=== PATIENT | male | born 2000 | race Caucasian/White ===

== ENCOUNTER 2021-02-13 11:30 | Emergency (ER) | payer BC, OTHER ==
--- OUTSIDE RECORDS SUMMARY | 2021-02-13 11:36 | XMS REPORT | Continuity of Care Document ---
:2000 Author Organization [facility] t Address [address] [place] [address] Care Team Providers Name Role Phone Karthik Torres MD Attending Clinician Johny Serrano Attending Clinician Megan Serrano Attending Clinician Problems Condition Condition Condition Status Onset Resolution Last Treating Co mments Source Name Details Category Date Date Treatment Clinician Date RIGHT ACL Diagnosis Active 2015-082017-09-20 Memoria 2-16 14:25:00 l RIGHT 08:00: Dickinson ACL 00 Active 07/29/2016 [facility] RIGHT KNEE Diagnosis Active 2015-082016-11-21 Memoria 2-16 14:37:00 l RIGHT 08:00: Levy KNEE 00 Active 07/29/2016 [facility] [place] RT Diagnosis Active 2015-082016-12-15 Mem oria SHOULDER 2-16 09:42:00 l RT 08:00: Dickinson SHOULDER 00 Active 07/29/2016 [facility] [place] SPRAIN Diagnosis Active 2015-082017-05-03 Mem oria 2-16 13:03:00 l SPRAIN 08:00: Levy 00 Active 07/29/2016 [facility] [place]ley S80.01XA - Diagnosis Active 2015-10-28 Memoria "CONTUSION 3-10 07:46:00 l OF RIGHT S80.01XA 00:01: Herm jared KNEE, INI - 00 "CONTUSION OF RIGHT KNEE, INI Active 10/22/2015 OP[facility] Levy 719.46 - Diagnosis Active 2015-04-28 M emoria JOINT 04-28 18:34:00 l PAIN-L/LE 719.46 - 00:01: Her patton JOINT 00 PAIN-L/LE Active 04/28/2015 OP[facility] [place] RT KNEE Diagnosis Active 2018-01-29 Me moria 12:15:00 l RT KNEE Levy Active [facility] [place] Allergies, Adverse Reactions, Alerts This patient has no known allergies or adverse reactions. Social History Social Habit Start Date Stop Date Quantity Comments Source Social History 2017-05-19 2017-05-19 [facility] tamiko 04:59:00 04:59:00 Medications This patient has no known medications. Procedures This patient has no known procedures. Encounters Start End Encounter Admission Attending Care Care Encounter Source Date/Time Date/Time Type Type Clinicians Facility Department ID 2021-02-04 2021-02-04 Office Brian CTALEXA [id number] 08:27:29 08:42:29 Visit [facility] [id number] Karthik Mckeon [id number] Professio [id number] nal 044 Office [address] 2017-04-19 2017-05-18 Outpatient Lowe, 2.16.840. 2.16.840.1. 8 [id number] 08:00:00 23:59:00 Josue [id number] 08 Johny [id number] 5.54 2017-03-20 2017-04-18 Outpatient Lowe, 2.16.840. 2.16.840.1. 8 [id number] 11:00:00 23:59:00 Josue [id number] 07 Johny [id number] 5.54 2017-02-15 2017-03-16 Outpatient Lowe, 2.16.840. 2.16.840.1. 8 [id number] 15:00:00 23:59:00 Josue [id number] 06 Johny 3.615.54 5.54 2017-01-11 2017-02-09 Outpatient Lowe, 2.16.840. 2.16.840.1. 8 [id number] 17:00:00 23:59:00 Josue [id number]. [id number] 05 Jhony 3.615.54 5.54 2017-01-25 2017-01-25 Outpatient Lowe, MH29 MH29 [id number] 17:03:00 23:59:00 Josue Herrera Johny 2016-12-07 2017-01-05 Outpatient Lowe, 2.16.840. 2.16.840.1. 8 [id number] 15:00:00 23:59:00 Josue [id number] 04 Johny 3.615.54 5.54 2016-11-07 2016-12-06 Outpatient Lowe, 2.16.840. 2.16.840.1. 8 [id number] 17:00:00 23:59:00 Josue [id number] 03 Johny 3.615.54 5.54 2016-10-05 2016-11-03 Outpatient Lowe, 2.16.840. 2.16.840.1. 8 [id number] 17:00:00 23:59:00 Josue [id number] 02 Johny 3.615.54 5.54 2016-09-01 2016-09-30 Outpatient Lowe, 2.16.840. 2.16.840.1. 8 [id number] 17:00:00 23:59:00 Josue [id number] 01 Johny 3.615.54 5.54 2016-08-01 2016-08-30 Outpatient Lowe, 2.16.840. 2.16.840.1. 8 [id number] 15:59:00 23:59:00 Josue [id number] 00 Johny 3.615.54 5.54 2015-12-12 2015-12-12 Outpatient Lowe, MHOIP MHOIP [id number] 13:28:00 23:59:00 Josue Guzman 03 2015-10-27 2015-10-27 Outpatient Lowe, MHOIH MHOIH [id number] 15:59:00 23:59:00 Josue Guzman 02 2015-04-28 2015-04-28 Outpatient Lowe, MHOIH MHOIH [id number] 18:24:00 23:59:00 Josue Guzman 2015-04-24 2015-04-24 Outpatient Zach [facility] [id number] 14:50:00 23:59:00 Josue Guzman Results This patient has no known results.
[2021-02-13 12:59] LABS: Absolute Lymphocytes (CBC) 1.2 K/uL (0.7-4.9); Basophils % 0.3 % (0-1.3); Hematocrit 51.8 % (39.6-49.0); Lymphocytes % 12.7 % (15.3-44.8); MPV 7.5 fL (7.6-11.3); RBC Red Blood Cell Count 5.63 M/uL (4.33-5.43)
[2021-02-13 13:00] LABS: Protime INR 1.01
[2021-02-13 13:12] LABS: ALT/SGPT 37 U/L (12-78); AST/SGOT 21 U/L (15-37); Albumin 4.2 g/dL (3.4-5.0); Alkaline Phosphatase 97 U/L (45-117); BUN Blood Urea Nitrogen 14 mg/dL (7-18); Bicarbonate 26 mmol/L (21-32); Bilirubin Direct 0.1 mg/dL (0-0.2); Bilirubin Total 0.4 mg/dL (0.2-1.0); Glucose Level 134 mg/dL (74-106); Magnesium 2.1 mg/dL (1.8-2.4); NT PRO-BNP 16 pg/mL (<125); Potassium 4.4 mmol/L (3.5-5.1); Protein, Total 7.8 g/dL (6.4-8.2); Sodium Level 139 mmol/L (136-145); Troponin (Emerg Dept Use Only) < 0.02 ng/mL (0.0-0.045)
--- NOTE | 2021-02-13 13:34 | RAD REPORT ---
EXAM DESCRIPTION: RAD - Chest Single View - 02/13/2021 1:20 pm CLINICAL HISTORY: CHEST PAIN Chest pain. COMPARISON: <Comparisons> FINDINGS: Portable technique limits examination quality. The lungs are grossly clear. The heart is normal in size. No displaced fractures. IMPRESSION: No acute intrathoracic process suspected.
--- NOTE | 2021-02-13 14:46 | ER ---
Nurse's Notes [facility] Name: Zacarias Rizo Age: 20 yrs Sex: Male : 2000 Arrival Date: 02/13/2021 Time: 11:33 Bed 20 Private MD: Diagnosis: Chest pain, unspecified Presentation: 02/13 11:38 Chief complaint: Patient states: Pt was at work outside and started having chest pain, kg tingling to right side, and nausea around 10:30. Coronavirus screen: Client denies travel out of the [place] in the last 14 days. At this time, unable to obtain information related to travel outside the [place] At this time, the client does not indicate any symptoms associated with coronavirus-19. Ebola Screen: Patient negative for fever greater than or equal to 101.5 degrees Fahrenheit, and additional compatible Ebola Virus Disease symptoms Patient denies exposure to infectious person. Patient denies travel to an Ebola-affected area in the 21 days before illness onset. Initial Sepsis Screen: Does the patient meet any 2 criteria? No. Patient's initial sepsis screen is negative. Does the patient have a suspected source of infection? No. Patient's initial sepsis screen is negative. Risk Assessment: Do you want to hurt yourself or someone else? Patient reports no desire to harm self or others. Onset of symptoms was February 13, 2021 at 10:20. 11:38 Method Of Arrival: Ambulatory kg 11:38 Acuity: LIZ 3 kg Triage Assessment: 11:40 General: Appears in no apparent distress. Behavior is calm, cooperative, appropriate kg for age, quiet. Pain: Complains of pain in anterior aspect of left upper chest and left breast Pain radiates to anterior aspect of right shoulder, right axilla and right bicep Pain currently is 5 out of 10 on a pain scale. at worst was 9 out of 10 on a pain scale. level that patient reports is acceptable is 3 out of 10 on a pain scale. Quality of pain is described as sharp, stabbing, constant. Historical: - Allergies: 11:42 steriods; kg - PSHx: 11:42 right hand sx; Right ACL; kg - Immunization history:: Adult Immunizations up to date, Client reports having NOT received the Covid vaccine. - Social history:: Smoking status: Patient reports the use of cigarette tobacco products, smokes one-half pack cigarettes per day, Patient uses alcohol, weekly. Patient/guardian denies using Smoking status: Reported history of juuling and/or vaping. Screenin:40 Abuse screen: Denies threats or abuse. Denies injuries from another. Nutritional kg screening: No deficits noted. Tuberculosis screening: No symptoms or risk factors identified. Fall Risk None identified. No fall in past 12 months (0 pts). No secondary diagnosis (0 pts). No IV (0 pts). Ambulatory Aid- None/Bed Rest/Nurse Assist (0 pts). Gait- Normal/Bed Rest/Wheelchair (0 pts) Mental Status- Oriented to own ability (0 pts). Total Wang Fall Scale indicates No Risk (0-24 pts). Assessment: 12:30 General: Appears in no apparent distress. uncomfortable, Behavior is calm, cooperative, zb appropriate for age. Pain: Complains of pain in chest and right arm Pain currently is 5 out of 10 on a pain scale. Quality of pain is described as dull, pressure, Pain began 2 hours ago. Is continuous. Neuro: Level of Consciousness is awake, alert, obeys commands. Cardiovascular: Heart tones S1 S2 present Patient's skin is warm and dry. Chest pain quality is pressure, sharp, is located in right left anterior. Respiratory: Airway is patent Trachea midline. GI: Abdomen is round Bowel sounds present X 4 quads. Abd is soft and non tender X 4 quads. Reports nausea. Derm: Skin is intact, is healthy with good turgor, Skin is normal. 13:30 Reassessment: Patient appears in no apparent distress at this time. Patient and/or zb family updated on plan of care and expected duration. Pain level reassessed. Patient is alert, oriented x 3, equal unlabored respirations, skin warm/dry/pink. family at bedside. 14:25 Reassessment: Patient appears in no apparent distress at this time. Patient and/or zb family updated on plan of care and expected duration. Pain level reassessed. Patient is alert, oriented x 3, equal unlabored respirations, skin warm/dry/pink. family remains at bedside. Vital Signs: 11:38 BP 122 / 72; Pulse 75; Resp 20; Temp 98.0(O); Pulse Ox 98% on R/A; Weight 111.2 kg (R); kg Height 6 ft. 2 in. (187.96 cm); Pain 5/10; 14:24 BP 129 / 77; Pulse 78; Resp 18; Pulse Ox 99% on R/A; zb 11:38 Body Mass Index 31.48 (111.20 kg, 187.96 cm) kg ED Course: 11:33 Patient arrived in ED. mr 11:40 Triage completed. kg 11:42 Arm band placed on left wrist. kg 11:45 Patient has correct armband on for positive identification. Call light in reach. Side kg rails up X 1. piper installer on. Pulse ox on. NIBP on. 12:12 Delmy Flood RN is Primary Nurse. zb 12:13 Rene Braxton PA is PHCP. [facility] 12:13 Dl Hui MD is Attending Physician. m 12:36 Initial lab(s) drawn, by ga, sent to lab. Inserted saline lock: 20 gauge in right zb antecubital area, using aseptic technique. Blood collected. Patient maintains SpO2 saturation greater than 95% on room air. 12:47 Warm blanket given. Pillow given. 5 13:19 XRAY Chest (1 view) In Process Unspecified. EDMS 15:15 No provider procedures requiring assistance completed. IV discontinued, intact, zb bleeding controlled, No redness/swelling at site. Pressure dressing applied. Administered Medications: No medications were administered Outcome: 14:45 Discharge ordered by . jm 15:15 Discharged to home ambulatory, with family. zb 15:15 Condition: stable 15:15 Discharge instructions given to patient, family, Instructed on discharge instructions, follow up and referral plans. Demonstrated understanding of instructions, follow-up care. 15:23 Patient left the ED. zb Signatures: Dispatcher [employer] EDMS Rene Braxton PA PA cristina Myla Skaggs Maria 5 Delmy Flood RN RN zb Graham, Kristen, RN RN kg Corrections: (The following items were deleted from the chart) 11:44 11:42 Allergies: No Known Allergies; kg kg
--- NOTE | 2021-02-13 14:46 | EDPHYS ---
Physician Documentation [facility] Name: Zacarias Rizo Age: 20 yrs Sex: Male : 2000 Arrival Date: 02/13/2021 Time: 11:33 Bed 20 Private MD: ED Physician Dl Hui HPI: 02/13 12:51 This 20 yrs old Male presents to ER via Ambulatory with complaints of Chest jmm Pain, High Blood Pressure. 12:51 The patient or guardian reports chest pain that is located primarily in the substernal jmm area. The pain radiates to the right arm. Associated signs and symptoms: Pertinent positives: shortness of breath. The chest pain is described as aching, sharp. Duration: The patient or guardian reports multiple episodes. Modifying factors: The symptoms are alleviated by nothing. the symptoms are aggravated by nothing. The patient has not experienced similar symptoms in the past. Patient recently diagnosed with elevated blood presurre. Denies cardiac history. . Historical: - Allergies: 11:42 steriods; kg - PSHx: 11:42 right hand sx; Right ACL; kg - Immunization history:: Adult Immunizations up to date, Client reports having NOT received the Covid vaccine. - Social history:: Smoking status: Patient reports the use of cigarette tobacco products, smokes one-half pack cigarettes per day, Patient uses alcohol, weekly. Patient/guardian denies using Smoking status: Reported history of juuling and/or vaping. ROS: 12:51 Constitutional: Negative for fever, chills, and weight loss, Respiratory: Negative for jmm shortness of breath, cough, wheezing, and pleuritic chest pain. 12:51 Cardiovascular: Positive for chest pain. 12:51 All other systems are negative. Exam: 12:51 Constitutional: This is a well developed, well nourished patient who is awake, alert, jmm and in no acute distress. Head/Face: atraumatic. Eyes: EOMI, no conjunctival erythema appreciated ENT: Moist Mucus Membranes Neck: Trachea midline, Supple Chest/axilla: Normal chest wall appearance and motion. Cardiovascular: Regular rate and rhythm. No edema appreciated Respiratory: Normal respirations, no respiratory distress appreciated Abdomen/GI: Non distended, soft Back: Normal ROM Skin: General appearance color normal MS/ Extremity: Moves all extremities, no obvious deformities appreciated, no edema noted to the lower extremities Neuro: Awake and alert, normal gait Psych: Behavior is normal, Mood is normal, Patient is cooperative and pleasant Vital Signs: 11:38 BP 122 / 72; Pulse 75; Resp 20; Temp 98.0(O); Pulse Ox 98% on R/A; Weight 111.2 kg (R); kg Height 6 ft. 2 in. (187.96 cm); Pain 5/10; 14:24 BP 129 / 77; Pulse 78; Resp 18; Pulse Ox 99% on R/A; zb 11:38 Body Mass Index 31.48 (111.20 kg, 187.96 cm) kg MDM: 13:08 Patient medically screened. cristina 14:44 Data reviewed: vital signs, nurses notes. Counseling: I had a detailed discussion with riya the patient and/or guardian regarding: the historical points, exam findings, and any diagnostic results supporting the discharge/admit diagnosis, lab results, radiology results, the need for outpatient follow up, to return to the emergency department if symptoms worsen or persist or if there are any questions or concerns that arise at home. ED course: HEART SCORE = 1. D-Dimer is negative. Patient advised to follow up with pcp/cardiology for further evaluation. Patient understood and agrees with the plan of care. . 02/13 12:51 Order name: Basic Metabolic Panel; Complete Time: 13:38 zb 02/13 12:51 Order name: CBC with Diff; Complete Time: 13:08 zb 02/13 12:51 Order name: LFT's; Complete Time: 13:38 zb 02/13 12:51 Order name: Magnesium; Complete Time: 13:38 zb 02/13 12:51 Order name: NT PRO-BNP; Complete Time: 13:38 zb 02/13 12:51 Order name: PT-INR; Complete Time: 14:28 zb 02/13 12:51 Order name: Troponin (emerg Dept Use Only); Complete Time: 13:38 zb 02/13 12:51 Order name: XRAY Chest (1 view); Complete Time: 13:38 zb 02/13 12:51 Order name: EKG; Complete Time: 12:51 zb 02/13 12:51 Order name: Cardiac monitoring; Complete Time: 12:57 zb 02/13 12:51 Order name: EKG - Nurse/Tech; Complete Time: 12:54 zb 02/13 12:51 Order name: IV Saline Lock; Complete Time: 12:57 zb 02/13 14:09 Order name: D-Dimer; Complete Time: 14:28 EDMS 02/13 12:51 Order name: Labs collected and sent; Complete Time: 12:57 zb 02/13 12:51 Order name: O2 Per Protocol; Complete Time: 12:57 zb 02/13 12:51 Order name: O2 Sat Monitoring; Complete Time: 12:57 zb Administered Medications: No medications were administered Disposition Summary: 02/13/21 14:45 Discharge Ordered Location: Home jm Condition: Stable jmm Diagnosis - Chest pain, unspecified jmm Followup: jmm - With: Private Physician - When: 2 - 3 days - Reason: Recheck today's complaints, Continuance of care, Re-evaluation by your physician Discharge Instructions: - Discharge Summary Sheet jmm - Nonspecific Chest Pain, Adult jmm Forms: - Medication Reconciliation Form [facility] - Thank You Letter jmm - Antibiotic Education jmm - Prescription Opioid Use jm - Work release form zb Addendum: 02/15/2021 13:33 Co-signature as Attending Physician, Dl Hui MD I agree with the assessment and k dr plan of care. Signatures: Dispatcher [employer] EDWA Dl Hui MD MD kdr Mickail, Joel, PA PA jmm Brown, Zipporah, RN RN zCamila Diaz RN RN kg Corrections: (The following items were deleted from the chart) 02/13 11:44 11:42 Allergies: No Known Allergies; kg kg 14:09 13:10 D-DIMER+COAG.LAB.BRZ ordered. [facility] EDWA
[2021-02-13 15:33] VITALS: TEMP 98
[2021-02-13 15:35] VITALS: BP 129/77; O2SAT 99
--- NOTE | 2021-02-14 13:47 | EKG ---
Test Date: 2021-02-13 Test Time: 11:51:00 Scuba Instructor: ANCA MEASUREMENT RESULTS: Intervals: Rate: 75 WY: 158 QRSD: 90 QT: 358 QTc: 399 [place]: P: 62 WY: 158 QRS: 57 T: 57 INTERPRETIVE STATEMENTS: Normal sinus rhythm Early repolarization Normal ECG No previous ECG available for comparison Electronically Signed On 02-14-21 13:45:43 CDT by Justice Molina
== END 2021-02-13 15:23 | disposition home or self-care (01) ==
LOC: ER 11:30
DX: R07.9 Chest pain, unspecified (principal); F17.210 Nicotine dependence, cigarettes, uncomplicated; Z88.8 Allergy status to other drugs, medicaments and biological substances
CPT/HCPCS: 36415; 71045; 80048; 80076; 83735; 83880; 84484; 85025; 85379; 85610; 93005; 99285

== ENCOUNTER 2021-05-26 04:19 | Emergency (ER) | payer BC, OTHER ==
[2021-05-26 05:00] LABS: Urine Blood Trace-intact (Negative); Urine Glucose Negative (Negative); Urine Protein Negative (Negative); Urine Specific Gravity <=1.005 (1.005-1.030); Urine pH 5.5 (5.0-7.0)
[2021-05-26 05:01] LABS: Absolute Lymphocytes (CBC) 2.1 K/uL (0.7-4.9); Basophils % 0.4 % (0-1.3); Hematocrit 47.9 % (39.6-49.0); MPV 6.9 fL (7.6-11.3); Protime INR 0.99; RBC Red Blood Cell Count 5.26 M/uL (4.33-5.43)
[2021-05-26 05:15] LABS: Barbiturates NEGATIVE (NEGATIVE); Benzodiazepines NEGATIVE (NEGATIVE); Cocaine NEGATIVE (NEGATIVE); METHAMPHETAM NEGATIVE (NEGATIVE); Methadone NEGATIVE (NEGATIVE); Opiates NEGATIVE (NEGATIVE); Phencyclidine NEGATIVE (NEGATIVE); THC Cannibis NEGATIVE (NEGATIVE)
[2021-05-26] MEDS ORDERED: NA CHLORIDE 0.9% 1,000 ML ONE (05:16)
[2021-05-26] MEDS ORDERED: FAMOTIDINE 20 MG/2 ML VIAL IV ONE (05:17)
[2021-05-26 05:18] LABS: ALT/SGPT 36 U/L (12-78); AST/SGOT 19 U/L (15-37); Alkaline Phosphatase 97 U/L (45-117); BUN Blood Urea Nitrogen 13 mg/dL (7-18); Bicarbonate 23 mmol/L (21-32); Bilirubin Direct < 0.1 mg/dL (0-0.2); Bilirubin Total 0.3 mg/dL (0.2-1.0); Glucose Level 117 mg/dL (74-106); Magnesium 1.9 mg/dL (1.8-2.4); NT PRO-BNP 6 pg/mL (<125); Protein, Total 7.9 g/dL (6.4-8.2); Sodium Level 136 mmol/L (136-145); Troponin (Emerg Dept Use Only) < 0.02 ng/mL (0.0-0.045)
[2021-05-26] MEDS ORDERED: KETOROLAC 30 MG/ML INJ ONE (05:30)
--- NOTE | 2021-05-26 06:23 | EDPHYS ---
Physician Documentation [facility] Name: Zacarias Rizo Age: 20 yrs Sex: Male : 2000 Arrival Date: 05/26/2021 Time: 04:29 Bed 6 Private MD: REI Physician Jordi Yanez HPI: 05/26 04:43 This 20 yrs old Male presents to ER via EMS with complaints of chest pain. tete 04:43 The patient has shortness of breath with light activity. Onset: The symptoms/episode tete began/occurred just prior to arrival, today. Duration: The symptoms are continuous, and are unchanged since they started. The patient's shortness of breath is aggravated by nothing, is alleviated by nothing. The patient or guardian reports chest pain that is located primarily in the anterior chest wall. The pain does not radiate. Associated signs and symptoms: Pertinent positives: chest pain. Severity of symptoms: At their worst the symptoms were moderate. Associated signs and symptoms: The patient has no apparent associated signs or symptoms. The chest pain is described as sharp. Duration: The patient or guardian reports multiple episodes, that wax and wane. Historical: - Allergies: 04:38 steriods; sj1 - Home Meds: 04:38 Buspirone Oral 1 tab 2 times per day [Active]; sj1 - PMHx: 04:38 Anxiety; sj1 - PSHx: 04:38 Right ACL; right hand sx; sj1 - Immunization history:: Adult Immunizations up to date, Client reports having NOT received the Covid vaccine. - Social history:: Smoking status: Patient reports the use of cigarette tobacco products, smokes one-half pack cigarettes per day, Patient uses alcohol, on a daily basis. admits to "couple of beers" a day. - Family history:: not pertinent. ROS: 04:43 Constitutional: Negative for fever, chills, and weight loss, Eyes: Negative for injury, tete pain, redness, and discharge, ENT: Negative for injury, pain, and discharge, Neck: Negative for injury, pain, and swelling, Respiratory: Negative for shortness of breath, cough, wheezing, and pleuritic chest pain, Abdomen/GI: Negative for abdominal pain, nausea, vomiting, diarrhea, and constipation, Back: Negative for injury and pain, : Negative for injury, bleeding, discharge, and swelling, MS/Extremity: Negative for injury and deformity, Skin: Negative for injury, rash, and discoloration, Neuro: Negative for headache, weakness, numbness, tingling, and seizure, Psych: Negative for depression, anxiety, suicide ideation, homicidal ideation, and hallucinations, Allergy/Immunology: Negative for hives, rash, and allergies, Endocrine: Negative for neck swelling, polydipsia, polyuria, polyphagia, and marked weight changes. 04:43 Cardiovascular: Positive for chest pain. Exam: 04:43 Constitutional: This is a well developed, well nourished patient who is awake, alert, tete and in no acute distress. Head/Face: Normocephalic, atraumatic. Eyes: Pupils equal round and reactive to light, extra-ocular motions intact. Lids and lashes normal. Conjunctiva and sclera are non-icteric and not injected. Cornea within normal limits. Periorbital areas with no swelling, redness, or edema. ENT: Nares patent. No nasal discharge, no septal abnormalities noted. Tympanic membranes are normal and external auditory canals are clear. Oropharynx with no redness, swelling, or masses, exudates, or evidence of obstruction, uvula midline. Mucous membranes moist. Neck: Trachea midline, no thyromegaly or masses palpated, and no cervical lymphadenopathy. Supple, full range of motion without nuchal rigidity, or vertebral point tenderness. No Meningismus. Chest/axilla: Normal chest wall appearance and motion. Nontender with no deformity. No lesions are appreciated. Respiratory: Lungs have equal breath sounds bilaterally, clear to auscultation and percussion. No rales, rhonchi or wheezes noted. No increased work of breathing, no retractions or nasal flaring. Abdomen/GI: Soft, non-tender, with normal bowel sounds. No distension or tympany. No guarding or rebound. No evidence of tenderness throughout. Back: No spinal tenderness. No costovertebral tenderness. Full range of motion. Male : Normal genitalia with no discharge or lesions. Skin: Warm, dry with normal turgor. Normal color with no rashes, no lesions, and no evidence of cellulitis. MS/ Extremity: Pulses equal, no cyanosis. Neurovascular intact. Full, normal range of motion. Neuro: Awake and alert, GCS 15, oriented to person, place, time, and situation. Cranial nerves II-XII grossly intact. Motor strength 5/5 in all extremities. Sensory grossly intact. Cerebellar exam normal. Normal gait. Psych: Awake, alert, with orientation to person, place and time. Behavior, mood, and affect are within normal limits. 04:43 Cardiovascular: Rate: normal, Rhythm: regular, Pulses: Pulses are 4+ in bilateral radial, brachial, femoral, popliteal, posterior tibial and and dorsalis pedis arteries.. 04:43 ECG was reviewed by the Attending Physician. Vital Signs: 04:36 BP 103 / 61 LA Sitting (auto/reg); Pulse 94; Resp 15; Temp 98.1(O); Pulse Ox 97% on sj1 R/A; Weight 117.93 kg (R); Height 6 ft. 2 in. (187.96 cm); Pain 3/10; 07:05 BP 126 / 59; Pulse 94; Resp 16 S; Temp 97.9(O); Pulse Ox 98% on R/A; Pain 0/10; sj1 04:36 Body Mass Index 33.38 (117.93 kg, 187.96 cm) [facility] MDM: 04:29 Patient medically screened. tete 06:16 Differential diagnosis: Anxiety Reaction asthma, Bronchitis abnormal EKG, acute tete myocardial infarction, anxiety, congestive heart failure Cholelithiasis costochondritis, hiatal hernia, pancreatitis, pericarditis, pleurisy, pneumonia, Myocardial Infarction pneumonia, pulmonary edema, Pulmonary Embolism Unstable Angina. Antibiotic administration: Not indicated. HEART Score: History: Slightly Suspicious (0), ECG: Normal (0), Age: < or = 45 years (0), Risk Factors: Troponin: < or = 1 x Normal Limit (0). HEART Score: Total Score = 0. The patient's Wells Deep Vein Thrombosis Score was calculated as follows: Total Score: 0. This patient was found to be at low risk for a deep vein thrombosis by using the Well's assessment criteria Total Score: 0-2 Pts- Low Risk. The patient's pulmonary embolism risk score was calculated as follows: Total Score: 0-2 points. This patient was found to be at low risk for a pulmonary embolism by using the Well's assessment criteria Total Score: 0-2 points. This patient was found to be at low risk for a pulmonary embolism by using the Well's assessment criteria. ZOEY Risk Score: TOTAL SCORE = 0. Immunization status:. Data reviewed: vital signs, nurses notes, lab test result(s), EKG, radiologic studies, plain films. Data interpreted: roller checker: rate is 94 beats/min, rhythm is regular, Pulse oximetry: on room air is 97 %. Test interpretation: by ED physician or midlevel provider: ECG, plain radiologic studies. Counseling: I had a detailed discussion with the patient and/or guardian regarding: the historical points, exam findings, and any diagnostic results supporting the discharge/admit diagnosis, lab results, radiology results, the need for outpatient follow up, for definitive care, 05/26 04:31 Order name: Basic Metabolic Panel [facility] 05/26 04:31 Order name: CBC with Diff [facility] 05/26 04:31 Order name: LFT's; Complete Time: 06:16 [facility] 05/26 04:31 Order name: Magnesium; Complete Time: 06:16 [facility] 05/26 04:31 Order name: NT PRO-BNP; Complete Time: 06:16 [facility] 05/26 04:31 Order name: PT-INR; Complete Time: 06:16 [facility] 05/26 04:31 Order name: Troponin (emerg Dept Use Only); Complete Time: 06:16 [facility] 05/26 04:31 Order name: UDS [facility] 05/26 04:31 Order name: Basic Metabolic Panel; Complete Time: 06:16 [facility] 05/26 04:31 Order name: CBC with Automated Diff; Complete Time: 06:16 [facility] 05/26 04:32 Order name: Urine Drug Screen; Complete Time: 06:16 [facility] 05/26 04:41 Order name: ETOH Level; Complete Time: 06:16 [facility] 05/26 05:00 Order name: Urine Dipstick-Ancillary; Complete Time: 06:16 [facility] 05/26 06:16 Order name: CREATININE WHOLE BLOOD [facility] 05/26 04:31 Order name: XRAY Chest (1 view) [facility] 05/26 04:31 Order name: EKG; Complete Time: 04:31 [facility] 05/26 04:31 Order name: Cardiac monitoring; Complete Time: 04:44 [facility] 05/26 04:31 Order name: EKG - Nurse/Tech; Complete Time: 04:44 [facility] 05/26 04:31 Order name: IV Saline Lock; Complete Time: 04:44 [facility] 05/26 04:31 Order name: Labs collected and sent; Complete Time: 04:44 [facility] 05/26 04:31 Order name: O2 Per Protocol; Complete Time: 04:44 [facility] 05/26 04:31 Order name: O2 Sat Monitoring; Complete Time: 04:44 [facility] 05/26 04:31 Order name: Urine Dipstick-Ancillary (obtain specimen); Complete Time: 04:55 [facility] 05/26 04:41 Order name: CT Chest For PE Angio tete EC:43 Rate is 94 beats/min. Rhythm is regular. QRS [place] is Normal. [place] interval is normal. QRS tete interval is normal. QT interval is normal. No Q waves. T waves are Normal. ST Segment is elevated in leads II, III, aVF, V4, V5, V6. Clinical impression: Abnormal EKG without significant change and No evidence of ischemia. Interpreted by me. Reviewed by me. Administered Medications: 04:34 CANCELLED (Duplicate Order): Ketorolac 30 mg IVP once tete 04:36 Not Given (took 324 upon arrivall): Aspirin Chewable Tablet 162 mg PO once sj1 04:52 CANCELLED (Duplicate Order): Indomethacin 50 mg PO once tete 04:55 Drug: NS 0.9% 1000 ml Route: IV; Rate: 1 bolus; Site: right antecubital; sj1 07:11 Follow up: Response: No adverse reaction; IV Status: Completed infusion; IV Intake: ll1 1000ml 04:55 Drug: Pepcid (famotidine) 20 mg Route: IVP; Site: right antecubital; sj1 07:07 Follow up: Response: No adverse reaction; Pain is decreased sj1 05:09 Drug: Ketorolac 30 mg Route: IVP; Site: right antecubital; sj1 07:07 Follow up: Response: No adverse reaction; Pain is decreased sj1 Disposition Summary: 05/26/21 06:22 Discharge Ordered Location: Home tete Problem: new tete Symptoms: have improved tete Condition: Stable tete Diagnosis - Chest pain, unspecified tete - Alcohol abuse tete Followup: tete - With: Private Physician - When: 2 - 3 days - Reason: Recheck today's complaints, Continuance of care, Re-evaluation by your physician Followup: tete - With: - When: 2 - 3 days - Reason: Recheck today's complaints, Re-evaluation by your physician Discharge Instructions: - Discharge Summary Sheet tete - Nonspecific Chest Pain, Adult tete - Alcohol Use Disorder tete - Nonspecific Chest Pain, Adult, [id number] tete - Alcohol Abuse and Nutrition tete - Aspirin and Your Heart tete Forms: - Medication Reconciliation Form tete - Thank You Letter tete - Antibiotic Education tete - Prescription Opioid Use tete Prescriptions: - indomethacin 50 mg Oral capsule - take 1 capsule by ORAL route 3 times per day for 7 days; 21 capsule; Refills: tete 0, Product Selection Permitted - Pepcid 20 mg Oral Tablet - take 1 tablet by ORAL route every 12 hours for 15 days; 30 tablet; Refills: 0, tete Product Selection Permitted Signatures: Dispatcher [employer] EDJordi Navarrete MD MD cha Johnson, Sade, RN RN sj1 Gilmer Melissa RN ll1 Corrections: (The following items were deleted from the chart) 04:34 04:31 Ketorolac 30 mg IVP once ordered. tete epstein 04:52 04:34 Indomethacin 50 mg PO once ordered. tete epstein
--- NOTE | 2021-05-26 06:23 | ER ---
Nurse's Notes [facility] Name: Zacarias Rizo Age: 20 yrs Sex: Male : 2000 Arrival Date: 05/26/2021 Time: 04:29 Bed 6 Private MD: Diagnosis: Chest pain, unspecified;Alcohol abuse Presentation: 05/26 04:36 Chief complaint: Patient states: nonradiating left sided chest tightness since 3am. hx sj1 of anxiety. +ETOH. 324mg ASA and 3 nitro's given en route by EMS. Coronavirus screen: Vaccine status: Patient reports being unvaccinated. Ebola Screen: Patient negative for fever greater than or equal to 101.5 degrees Fahrenheit, and additional compatible Ebola Virus Disease symptoms Patient denies exposure to infectious person. Patient denies travel to an Ebola-affected area in the 21 days before illness onset. No symptoms or risks identified at this time. Initial Sepsis Screen: Does the patient meet any 2 criteria? No. Patient's initial sepsis screen is negative. Does the patient have a suspected source of infection? No. Patient's initial sepsis screen is negative. Risk Assessment: Do you want to hurt yourself or someone else? Patient reports no desire to harm self or others. Onset of symptoms was May 26, 2021 at 03:00. 04:36 Method Of Arrival: EMS [facility] 04:36 Acuity: LIZ 3 sj1 Triage Assessment: 04:38 General: Appears in no apparent distress. comfortable, Behavior is calm, cooperative, sj1 appropriate for age. Pain: Complains of pain in LEFT SIDED CHEST TIGHTNESS. EENT: No deficits noted. Neuro: No deficits noted. Cardiovascular: Chest pain is described as vague, quality is squeezing, is located in left began 2 hours prior to arrival episodes are continuous is aggravated by "BEING ANXIOUS". Respiratory: No deficits noted. GI: Reports vomiting. : No deficits noted. Derm: No deficits noted. Musculoskeletal: No deficits noted. Historical: - Allergies: 04:38 steriods; sj1 - Home Meds: 04:38 Buspirone Oral 1 tab 2 times per day [Active]; sj1 - PMHx: 04:38 Anxiety; sj1 - PSHx: 04:38 Right ACL; right hand sx; sj1 - Immunization history:: Adult Immunizations up to date, Client reports having NOT received the Covid vaccine. - Social history:: Smoking status: Patient reports the use of cigarette tobacco products, smokes one-half pack cigarettes per day, Patient uses alcohol, on a daily basis. admits to "couple of beers" a day. - Family history:: not pertinent. Screenin:41 Abuse screen: Denies threats or abuse. Denies injuries from another. Nutritional 1 screening: No deficits noted. Tuberculosis screening: No symptoms or risk factors identified. Fall Risk None identified. Assessment: 07:06 Reassessment: Patient appears in no apparent distress at this time. No changes from sj1 previously documented assessment. Vital Signs: 04:36 BP 103 / 61 LA Sitting (auto/reg); Pulse 94; Resp 15; Temp 98.1(O); Pulse Ox 97% on sj1 R/A; Weight 117.93 kg (R); Height 6 ft. 2 in. (187.96 cm); Pain 3/10; 07:05 BP 126 / 59; Pulse 94; Resp 16 S; Temp 97.9(O); Pulse Ox 98% on R/A; Pain 0/10; sj1 04:36 Body Mass Index 33.38 (117.93 kg, 187.96 cm) 1 ED Course: 04:29 Patient arrived in ED. tete 04:29 Jordi Yanez MD is Attending Physician. tete 04:38 Triage completed. sj1 04:38 Arm band placed on left wrist. sj1 04:41 No apparent distress. Awaiting lab results. sj1 04:41 Patient has correct armband on for positive identification. Bed in low position. Call [facility] light in reach. Side rails up X 1. 04:41 No provider procedures requiring assistance completed. Maintain EMS IV. Dressing sj1 intact. Good blood return noted. Site clean \\T\\ dry. Gauge \\T\\ site: 18 RAC. 04:43 ETOH Level Sent. sj1 04:43 Urine Drug Screen Sent. sj1 04:44 CBC with Automated Diff Sent. sj1 04:44 Basic Metabolic Panel Sent. sj1 04:44 Basic Metabolic Panel Sent. sj1 04:44 CBC with Diff Sent. sj1 04:55 CT Chest For PE Angio Sent. sj1 04:55 UDS Sent. sj1 04:55 XRAY Chest (1 view) Sent. sj1 05:09 CT Chest For PE Angio In Process Unspecified. EDMS 05:11 XRAY Chest (1 view) In Process Unspecified. EDMS 06:22 Justice Molina MD is Referral Physician. [facility] 07:06 IV discontinued, intact, bleeding controlled, No redness/swelling at site. sj1 07:10 Gilmer Melissa, RN is Primary Nurse. ll1 Administered Medications: 04:34 CANCELLED (Duplicate Order): Ketorolac 30 mg IVP once tete 04:36 Not Given (took 324 upon arrivall): Aspirin Chewable Tablet 162 mg PO once sj1 04:52 CANCELLED (Duplicate Order): Indomethacin 50 mg PO once tete 04:55 Drug: NS 0.9% 1000 ml Route: IV; Rate: 1 bolus; Site: right antecubital; sj1 07:11 Follow up: Response: No adverse reaction; IV Status: Completed infusion; IV Intake: ll1 1000ml 04:55 Drug: Pepcid (famotidine) 20 mg Route: IVP; Site: right antecubital; sj1 07:07 Follow up: Response: No adverse reaction; Pain is decreased sj1 05:09 Drug: Ketorolac 30 mg Route: IVP; Site: right antecubital; sj1 07:07 Follow up: Response: No adverse reaction; Pain is decreased sj1 Intake: 07:11 IV: 1000ml; Total: 1000ml. ll1 Outcome: 06:22 Discharge ordered by . tete 07:05 Discharged to home ambulatory. sj1 07:05 Condition: stable 07:05 Discharge instructions given to patient, Instructed on discharge instructions, follow up and referral plans. medication usage, Demonstrated understanding of instructions, follow-up care, medications, Prescriptions given X 2. 07:11 Patient left the ED. ll1 Signatures: Dispatcher [employer] EDNY Jordi Yanez MD MD cha Lewis, Lynsay, RN RN 1 Isha Gonzalez RN RN sj1 Corrections: (The following items were deleted from the chart) 04:42 04:36 Chief complaint: Patient states: nonradiating left side chest tightness since sj1 3am. hx of anxiety. +ETOH. sj1 04:42 04:36 Chief complaint: Patient states: nonradiating left side chest tightness since sj1 3am. hx of anxiety. +ETOH. 324mg ASA and 3 nitro's given en route by EMS. sj1
[2021-05-26 07:20] VITALS: BP 126/59; TEMP 97.9; O2SAT 98
--- NOTE | 2021-05-26 07:41 | RAD REPORT ---
EXAM DESCRIPTION: RAD - Chest Single View - 05/26/2021 5:11 am CLINICAL HISTORY: COUGH COMPARISON: Chest Single View dated 02/13/2021 FINDINGS: Lines: None. Lungs: No evidence of edema or pneumonia. Pleural: No significant pleural effusions or pneumothorax. Cardiac: The heart size is within normal limits. Bones: No acute fractures. Other: IMPRESSION: No acute cardiopulmonary disease.
--- NOTE | 2021-05-26 11:20 | RAD REPORT ---
EXAM DESCRIPTION: CT - Chest For Pe Angio - 05/26/2021 6:24 am CLINICAL HISTORY: The patient is 20 years old and is Male; CHEST PAIN TECHNIQUE: Axial computed tomographic angiography images of the chest with intravenous contrast. S agittal and coronal reformatted images were created and reviewed. This CT exam was performed using one or more of the following dose reduction techniques: automated exposure control, adjustment of t he mA and/or kV according to patient size, and/or use of iterative reconstruction technique. MIP reconstructed images were created and reviewed. COMPARISON: No relevant prior studies available. FINDINGS: PULMONARY ARTERIES: Unremarkable. No pulmonary embolism. AORTA: No acute findings. No thoracic aortic aneurysm. LUNGS: Unremarkable. No mass. No consolidation. PLEURAL SPACE: Unremarkable. No significant effusion. No pneumothorax. HEART: Unremarkable. No cardiomegaly. No significant pericardial effusion. No evidence of RV dysfunction. BONES/JOINTS: No acute fracture. No dislocation. SOFT TISSUES: Unremarkable. LYMPH NODES: Unremarkable. No enlarged lymph nodes. IMPRESSION: Normal chest CTA. No pulmonary embolism. Electronically signed by: Maryann Darby MD 05/26/2021 5:34 AM CDT Due to temporary technical issues with the PACS/Fluency reporting system, reports are being signed by the in house radiologist without review as a courtesy to ensure prompt reporting. The interpreting r adiologist is fully responsible for the content of the report.
--- NOTE | 2021-05-26 16:36 | EKG ---
Test Date: 2021-05-26 Test Time: 04:22:43 Associate Drafter: MEASUREMENT RESULTS: Intervals: Rate: 88 DC: 168 QRSD: 90 QT: 350 QTc: 423 [place]: P: 61 DC: 168 QRS: 47 T: 49 INTERPRETIVE STATEMENTS: Normal sinus rhythm Acute pericarditis Abnormal ECG Compared to ECG 02/13/2021 11:51:00 Early repolarization no longer present Electronically Signed On 05-26-21 16:35:33 CDT by Justice Molina
== END 2021-05-26 07:11 | disposition home or self-care (01) ==
LOC: ER 04:19
DX: R07.9 Chest pain, unspecified (principal); F10.10 Alcohol abuse, uncomplicated; F41.9 Anxiety disorder, unspecified; F17.210 Nicotine dependence, cigarettes, uncomplicated; Z88.8 Allergy status to other drugs, medicaments and biological substances
CPT/HCPCS: 96361; 93005; 85025; 80048; 36415; 80320; 83735; 85610; 82565; 80076; 81003; 84484; 83880; 80307; 71275; 71045; 96375; 96374; 99284; Q9967; J7030